=== PATIENT | female | born 1975 ===

== ENCOUNTER 2016-11-10 10:42 | Day surgery (SDC) | payer OTHER ==
[2016-11-10 11:26] VITALS: BMI 33.1
[2016-11-10] MEDS ORDERED: Lidocaine 2% MPF (5 ml) Inj ONE (13:20)
[2016-11-10] MEDS ORDERED: Midazolam 2 MG/2 ML VIAL ONE (13:20)
[2016-11-10] MEDS ORDERED: Propofol 10 mg/ml Inj (20 ML) ONE (13:20)
[2016-11-10] MEDS ORDERED: Sevoflurane - Inhalation Anesthetic Liq (250 ml) ONE (13:25)
[2016-11-10] MEDS ORDERED: Strong Iodine Topical Sol. 5%-10% ONE (13:59)
[2016-11-10] MEDS ORDERED: Ferric Subsulfate Sol(60 mL) ONE (13:59)
[2016-11-10] MEDS ORDERED: Lactated Ringer's 1,000 ML IV ONE (14:02)
[2016-11-10] MEDS ORDERED: HYDROmorphone 0.5 mg/0.5 ml ISec IVP PRN (14:44)
[2016-11-10 15:08] VITALS: RESP 18
[2016-11-10 16:36] VITALS: BP 120/70; PULSE 62; TEMP 98; O2SAT 99
--- NOTE | 2016-12-17 16:17 | OP ---
PROCEDURE DATE: 11/10/2016 PREOPERATIVE DIAGNOSIS: Abnormal uterine bleeding, uterine polyp. POSTOPERATIVE DIAGNOSIS: Abnormal uterine bleeding, uterine polyp. PROCEDURE: Operative hysteroscopy and excision of uterine polyp. SURGEON: Maico Collins MD TYPE OF ANESTHESIA: General endotracheal. ESTIMATED BLOOD LOSS: Minimal. COMPLICATIONS: None. DESCRIPTION OF PROCEDURE: After adequate anesthesia was obtained, the patient was placed in a dorsal lithotomy position. She was prepped and draped. The surgeons were gowned and gloved. At this point, the cervix was dilated and the hysteroscope was inserted into the uterine cavity. The resectoscope was then inserted. The polyp was identified and a full excision was performed until the cavity was fully open. At the end of the procedure, there was no blood loss. The cavity was perfectly visualized completely. All the instruments were removed. It was then checked for hemostasis that appeared to be excellent. The patient was woken up and taken to recovery room in excellent condition. Maico Collins MD MTDD
== END 2016-11-10 16:40 | disposition home or self-care (01) ==
LOC: H.OPSURG 10:42
PROVIDERS: ATTEND Obstetrics & Gynecology Reproductive Endocrinology
DX: N84.0 Polyp of corpus uteri (principal); N93.8 Other specified abnormal uterine and vaginal bleeding
CPT/HCPCS: 58558; 88305; J0690; J2250; J2405; J2704; J3010; J7030; J7120